=== PATIENT | female | born 1945 | race Caucasian/White ===

== ENCOUNTER 2024-06-08 18:55 | Emergency (ER) | payer MEDICARE ==
[2024-06-08] MEDS ORDERED: Ketorolac Tromethamine 60 MG/2 ML VIAL ONE (19:12)
== END 2024-06-08 19:38 | disposition home or self-care (01) ==
LOC: MADERS 18:55
DX: T63.451A Toxic effect of venom of hornets, accidental (unintentional), initial encounter (principal); I10 Essential (primary) hypertension
CPT/HCPCS: 96372; 99283; J1885